=== PATIENT | female | born 1970 | race Caucasian/White ===

== ENCOUNTER 2018-03-07 22:47 | Emergency (ER) | payer MEDICAID ==
[~2018-03-07] VITALS: Ht 162.6 cm; Wt 67.7 kg
[~2018-03-07 22:47] MED LIST: CEPH-571 PO; NAPR-232 PO; ZOF4T PO; [UNRECOGNIZED DRUG - OTHER]; motrin prn
[2018-03-08] MEDS ORDERED: GABA300C PO (00:59)
[2018-03-08] MEDS ORDERED: METH4TAB81 PO (00:59)
[2018-03-08] MEDS ORDERED: HYDR-3965 PO (00:59)
[2018-03-08] MEDS ORDERED: HYDROcodone/acetaminophen 10/325mg tab PO ONE (01:00)
[2018-03-08] MEDS ORDERED: SULF1TAB49 PO (01:26)
[2018-03-08 01:38] VITALS: BP 125/68
== END 2018-03-08 01:40 | disposition home or self-care (01) ==
LOC: ER 22:47
DX: B02.9 Zoster without complications (principal); F12.10 Cannabis abuse, uncomplicated; Z79.899 Other long term (current) drug therapy; Z88.0 Allergy status to penicillin
CPT/HCPCS: 99283

== ENCOUNTER 2018-03-17 06:12 | Inpatient (IN) | payer MEDICAID ==
[~2018-03-17] VITALS: Ht 162.6 cm; Wt 65.0 kg
[~2018-03-17 06:12] MED LIST changes: +GABA300C PO; +HYDR-3965 PO; +METH4TAB81 PO; +SULF1TAB49 PO
[2018-03-17] MEDS ORDERED: normal saline 1000ML IV soln IVB ONE (06:30)
[2018-03-17] MEDS ORDERED: ketorolac trometh. 30mg/ml inj. IV ONE (06:30)
[2018-03-17] MEDS ORDERED: morphine 4 MG/ML inj SYRINge IV PRN ×2 (06:30→09:15)
[2018-03-17 06:57] LABS: BASOPHILS # (AUTO) 0.1 X10'3 (0-0.2); BASOPHILS % (AUTO) 0.4 % (0-1); EOSINOPHILS # (AUTO) 0.2 X10'3 (0-0.9); EOSINOPHILS % (AUTO) 1.2 % (0-6); HEMATOCRIT 42.9 % (35.0-45.0); HEMOGLOBIN 14.7 g/dl (12.0-16.0); LYMPHOCYTES % (AUTO) 7.1 % (21-51); MEAN CORPUSCULAR HEMOGLOBIN 30.9 PG (27.0-31.0); MEAN CORPUSCULAR HGB CONC 34.3 % (33.0-36.5); MEAN PLATELET VOLUME 7.5 FL (7.4-10.4); MONOCYTES # (AUTO) 0.2 X10'3 (0-0.9); MONOCYTES % (AUTO) 1.2 % (2-12); NEUTROPHILS # (AUTO) 12.8 X10'3 (1.8-7.7); NEUTROPHILS % (AUTO) 90.1 % (42-75); PLATELET COUNT 362 X10'3 (140-440); RED BLOOD COUNT 4.77 X10'6 (4.20-5.60); RED CELL DISTRIBUTION WIDTH 13.6 % (11.5-14.5); WHITE BLOOD COUNT 14.2 X10'3 (4.5-11.0)
[2018-03-17 07:00] LABS: CLARITY,URINE CLOUDY (Clear); COLOR,URINE YELLOW (Yellow); GLUCOSE, URINE NEGATIVE (Neg); KETONES,URINE NEGATIVE (Neg); LEUKOCYTE ESTERASE ,URINE LARGE (Neg); NITRITES, URINE POSITIVE (Neg); OCCULT BLOOD,URINE MODERATE (Neg); PROTEIN,URINE 100 mg/dl (Neg); UROBILINOGEN,URINE 0.2 E.U/dL (0.2-1.0)
[2018-03-17 07:03] LABS: URINE HCG NEGATIVE (NEG)
[2018-03-17] MEDS ORDERED: LISI-604 PO (07:03)
[2018-03-17 07:06] LABS: UA COLLECTION TYPE CLN CATCH MIDSTREAM
[2018-03-17 07:09] LABS: RBC,URINE 0-2 /HPF (0-2); WBC,URINE 30-50 /HPF (0-4)
[2018-03-17 07:11] LABS: BACTERIA,URINE 4+ /HPF (Neg); MUCUS STRANDS FEW /LPF (Neg); SQUAMOUS EPITHELIAL CELL,UR MANY /LPF (FEW)
[2018-03-17 07:15] LABS: ALANINE AMINOTRANSFERASE 25 U/L (12-78); ALBUMIN 3.6 G/DL (3.4-5.0); ALBUMIN/GLOBULIN RATIO 0.9 (1.1-1.5); ALKALINE PHOSPHATASE 105 IU/L (46-116); ANION GAP 5 (8-16); ASPARTATE AMINO TRANSFERASE 13 U/L (10-37); BILIRUBIN,TOTAL 0.3 MG/DL (0.1-1.0); BLOOD UREA NITROGEN 16 MG/DL (7-18); BUN/CREATININE RATIO 18.8 (6.6-38.0); CALCIUM 8.7 MG/DL (8.5-10.1); CHLORIDE 103 MMOL/L (99-107); CREATININE 0.85 MG/DL (0.40-0.90); GLUCOSE 103 MG/DL (70-104); LIPASE 130 U/L (73-393); POTASSIUM 3.8 MMOL/L (3.5-5.1); SODIUM 137 MMOL/L (135-145); TOTAL CARBON DIOXIDE 28.9 MMOL/L (24-32); TOTAL PROTEIN 7.5 G/DL (6.4-8.2); eGFR 72 ML/MIN
[2018-03-17] MEDS ORDERED: normal saline 1000ML IV soln IV ONE (07:40)
[2018-03-17] MEDS: CefTRIAXone 2gm/D5W 50ml 50 ML IV ONE ×2 (07:46→08:09)
[2018-03-17] MEDS ORDERED: GABA-532 PO (08:28)
[2018-03-17] MEDS ORDERED: iohexol 300mg/ml 100ml inj. ONE (08:38)
[2018-03-17] MEDS ORDERED: magnesium hydroxide 30ml (MOM) UD suspension PO PRN (09:15)
[2018-03-17] MEDS ORDERED: mag hydrox/Alum hydrox/simeth 30ml oral suspension PO PRN (09:15)
[2018-03-17] MEDS ORDERED: acetaminophen 325mg tablet PO PRN (09:15)
[2018-03-17] MEDS ORDERED: ondansetron/PF 4mg/2ml inj IV PRN (09:15)
[2018-03-17] MEDS ORDERED: METH4TAB17 PO (09:17)
[2018-03-17] MEDS: HYDROcodone/acetaminophen 5mg/325mg tablet PO PRN ×3 (09:30→21:19)
[2018-03-17] MEDS: potassium cl 20mEq in 1/2 NS 1,000 ML IV SCH ×2 (09:39→19:26)
[2018-03-17 10:59] VITALS: BP 137/86
[2018-03-17 19:30] VITALS: BP_SYST 106; BP_SYST 91; BP_DIAS 55; BP_DIAS 67
[2018-03-17] MEDS ORDERED: VALA10002 PO (22:28)
[2018-03-17 23:30] VITALS: BP 106/67
[2018-03-18] MEDS: potassium cl 20mEq in 1/2 NS 1,000 ML IV SCH ×3 (04:39→23:23)
[2018-03-18] MEDS: HYDROcodone/acetaminophen 5mg/325mg tablet PO PRN ×4 (04:41→23:23)
[2018-03-18 07:21] VITALS: BP 95/52
[2018-03-18] MEDS: lisinopril 2.5mg tablet PO SCH (08:30)
[2018-03-18] MEDS: lactobacillus rhamnosus 10,000 MMU CELLS/CAPSULE PO SCH ×2 (08:30→19:24)
[2018-03-18] MEDS: CefTRIAXone 2gm/D5W 50ml 50 ML IV SCH (08:31)
[2018-03-18 11:13] VITALS: BP 106/64
[2018-03-18] MEDS: gabapentin 300mg capsule PO SCH ×2 (17:53→23:23)
[2018-03-18] MEDS: valacyclovir 500mg tablet PO SCH (19:24)
[2018-03-18 19:30] VITALS: BP 112/71
[2018-03-18 23:30] VITALS: BP 110/72
[2018-03-19] MEDS: HYDROcodone/acetaminophen 5mg/325mg tablet PO PRN ×2 (05:06→17:34)
[2018-03-19 05:21] LABS: BASOPHILS % (AUTO) 0.3 % (0-1); EOSINOPHILS # (AUTO) 0.2 X10'3 (0-0.9); EOSINOPHILS % (AUTO) 1.3 % (0-6); HEMOGLOBIN 12.2 g/dl (12.0-16.0); LYMPHOCYTES # (AUTO) 1.4 X10'3 (1.1-4.8); LYMPHOCYTES % (AUTO) 9.5 % (21-51); MEAN CORPUSCULAR HEMOGLOBIN 30.7 PG (27.0-31.0); MEAN CORPUSCULAR VOLUME 90.3 FL (78-98); MEAN PLATELET VOLUME 7.9 FL (7.4-10.4); MONOCYTES % (AUTO) 7.2 % (2-12); NEUTROPHILS # (AUTO) 11.6 X10'3 (1.8-7.7); NEUTROPHILS % (AUTO) 81.7 % (42-75); PLATELET COUNT 280 X10'3 (140-440); RED BLOOD COUNT 3.98 X10'6 (4.20-5.60); RED CELL DISTRIBUTION WIDTH 13.8 % (11.5-14.5); WHITE BLOOD COUNT 14.2 X10'3 (4.5-11.0)
[2018-03-19 05:40] LABS: ALANINE AMINOTRANSFERASE 17 U/L (12-78); ALBUMIN 2.3 G/DL (3.4-5.0); ALBUMIN/GLOBULIN RATIO 0.6 (1.1-1.5); ALKALINE PHOSPHATASE 116 IU/L (46-116); ANION GAP 6 (8-16); ASPARTATE AMINO TRANSFERASE 12 U/L (10-37); BILIRUBIN,TOTAL 0.2 MG/DL (0.1-1.0); BLOOD UREA NITROGEN 5 MG/DL (7-18); BUN/CREATININE RATIO 7.2 (6.6-38.0); CALCIUM 8.2 MG/DL (8.5-10.1); CHLORIDE 105 MMOL/L (99-107); CREATININE 0.69 MG/DL (0.40-0.90); GLUCOSE 100 MG/DL (70-104); POTASSIUM 4.8 MMOL/L (3.5-5.1); SODIUM 139 MMOL/L (135-145); TOTAL CARBON DIOXIDE 28.5 MMOL/L (24-32); TOTAL PROTEIN 5.9 G/DL (6.4-8.2); eGFR > 90 ML/MIN
[2018-03-19 05:47] LABS: CLARITY,URINE CLOUDY (Clear); COLOR,URINE YELLOW (Yellow); GLUCOSE, URINE NEGATIVE (Neg); KETONES,URINE NEGATIVE (Neg); LEUKOCYTE ESTERASE ,URINE LARGE (Neg); NITRITES, URINE NEGATIVE (Neg); OCCULT BLOOD,URINE MODERATE (Neg); PROTEIN,URINE NEGATIVE (Neg); UROBILINOGEN,URINE 0.2 E.U/dL (0.2-1.0)
[2018-03-19 05:53] LABS: UA COLLECTION TYPE VOIDED
[2018-03-19 05:58] LABS: BACTERIA,URINE 1+ /HPF (Neg); RBC,URINE 0-2 /HPF (0-2); SQUAMOUS EPITHELIAL CELL,UR MODERATE /LPF (FEW); TRICHOMONAS,URINE MOD /HPF (NEGATIVE)
[2018-03-19 06:51] VITALS: BP 100/67
[2018-03-19] MEDS: lisinopril 2.5mg tablet PO SCH (07:04)
[2018-03-19] MEDS: CefTRIAXone 2gm/D5W 50ml 50 ML IV SCH (07:04)
[2018-03-19] MEDS: lactobacillus rhamnosus 10,000 MMU CELLS/CAPSULE PO SCH ×2 (07:04→19:17)
[2018-03-19] MEDS: gabapentin 300mg capsule PO SCH ×3 (07:04→23:57)
[2018-03-19] MEDS: valacyclovir 500mg tablet PO SCH ×2 (07:04→19:17)
[2018-03-19] MEDS ORDERED: lisinopril 5mg tablet PO SCH (08:00)
[2018-03-19] MEDS: levoFLOXACIN-Levaquin 500mg/D5 100 ML IV SCH (10:05)
[2018-03-19] MEDS: potassium cl 20mEq in 1/2 NS 1,000 ML IV SCH ×2 (10:07→20:31)
[2018-03-19 20:00] VITALS: BP_SYST 119; BP_SYST 92; BP_DIAS 55; BP_DIAS 78
[2018-03-19 23:30] VITALS: BP 90/55
[2018-03-20] MEDS: HYDROcodone/acetaminophen 5mg/325mg tablet PO PRN ×2 (00:11→07:06)
[2018-03-20] MEDS: valacyclovir 500mg tablet PO SCH (07:05)
[2018-03-20] MEDS: gabapentin 300mg capsule PO SCH (07:05)
[2018-03-20] MEDS: lactobacillus rhamnosus 10,000 MMU CELLS/CAPSULE PO SCH (07:05)
[2018-03-20] MEDS: lisinopril 2.5mg tablet PO SCH (07:05)
[2018-03-20] MEDS: CefTRIAXone 2gm/D5W 50ml 50 ML IV SCH (07:05)
[2018-03-20 07:11] VITALS: BP 102/64
[2018-03-20] MEDS: potassium cl 20mEq in 1/2 NS 1,000 ML IV SCH (07:13)
[2018-03-20] MEDS: levoFLOXACIN-Levaquin 500mg/D5 100 ML IV SCH (08:24)
[2018-03-20 09:03] LABS: BASOPHILS # (AUTO) 0.1 X10'3 (0-0.2); BASOPHILS % (AUTO) 0.9 % (0-1); EOSINOPHILS # (AUTO) 0.1 X10'3 (0-0.9); EOSINOPHILS % (AUTO) 0.7 % (0-6); HEMATOCRIT 33.4 % (35.0-45.0); HEMOGLOBIN 11.3 g/dl (12.0-16.0); LYMPHOCYTES # (AUTO) 0.9 X10'3 (1.1-4.8); LYMPHOCYTES % (AUTO) 7.4 % (21-51); MEAN CORPUSCULAR HEMOGLOBIN 30.5 PG (27.0-31.0); MEAN CORPUSCULAR VOLUME 89.7 FL (78-98); MEAN PLATELET VOLUME 7.8 FL (7.4-10.4); MONOCYTES # (AUTO) 0.8 X10'3 (0-0.9); MONOCYTES % (AUTO) 6.1 % (2-12); NEUTROPHILS # (AUTO) 10.5 X10'3 (1.8-7.7); NEUTROPHILS % (AUTO) 84.9 % (42-75); PLATELET COUNT 311 X10'3 (140-440); RED BLOOD COUNT 3.72 X10'6 (4.20-5.60); WHITE BLOOD COUNT 12.3 X10'3 (4.5-11.0)
[2018-03-20 09:17] LABS: ALBUMIN 2.1 G/DL (3.4-5.0); ANION GAP 8 (8-16); BLOOD UREA NITROGEN 5 MG/DL (7-18); BUN/CREATININE RATIO 7.2 (6.6-38.0); CALCIUM 7.9 MG/DL (8.5-10.1); CHLORIDE 103 MMOL/L (99-107); CREATININE 0.69 MG/DL (0.40-0.90); GLUCOSE 166 MG/DL (70-104); POTASSIUM 3.8 MMOL/L (3.5-5.1); SODIUM 137 MMOL/L (135-145); TOTAL CARBON DIOXIDE 26.3 MMOL/L (24-32); eGFR > 90 ML/MIN
[2018-03-20] MEDS ORDERED: LEVO500T2 PO (09:24)
== END 2018-03-20 11:03 | disposition home or self-care (01) | DRG 463 ==
LOC: ER 06:13 → ED HOLD 09:13 → EDBEDREQ 10:00 → SUR 3N 10:31
PROVIDERS: ADMIT Internal Medicine; ATTEND Family Medicine
DX: N10 Acute pyelonephritis (principal); I10 Essential (primary) hypertension; N15.1 Renal and perinephric abscess; F32.9 Major depressive disorder, single episode, unspecified; F17.210 Nicotine dependence, cigarettes, uncomplicated; M19.90 Unspecified osteoarthritis, unspecified site; F12.90 Cannabis use, unspecified, uncomplicated; N20.0 Calculus of kidney; Z79.899 Other long term (current) drug therapy; Z87.440 Personal history of urinary (tract) infections; Z87.442 Personal history of urinary calculi; Z88.0 Allergy status to penicillin; Z88.7 Allergy status to serum and vaccine
CPT/HCPCS: 36415; 74160; 74176; 80048; 80053; 81001; 81025; 83605; 83690; 84145; 85025; 87040; 87070; 87088; 96361; 96365; 96375; 99285; J0696; J1885; J1956; J2270; J7030; Q9967

== ENCOUNTER 2018-04-28 14:44 | Emergency (ER) | payer MEDICAID ==
[~2018-04-28] VITALS: Ht 160 cm; Wt 65.6 kg
[~2018-04-28 14:44] MED LIST changes: -CEPH-571 PO; +GABA-532 PO; -GABA300C PO; -HYDR-3965 PO; +LISI-604 PO; -METH4TAB81 PO; -NAPR-232 PO; -SULF1TAB49 PO; +VALA10002 PO; -ZOF4T PO; -[UNRECOGNIZED DRUG - OTHER]; -motrin prn
[2018-04-28 14:51] VITALS: BP 136/91
== END 2018-04-28 15:45 | disposition home or self-care (01) ==
LOC: ER 14:45
DX: S93.401A Sprain of unspecified ligament of right ankle, initial encounter (principal); S83.91XA Sprain of unspecified site of right knee, initial encounter; M19.90 Unspecified osteoarthritis, unspecified site; F12.90 Cannabis use, unspecified, uncomplicated; Z87.442 Personal history of urinary calculi; Z98.890 Other specified postprocedural states; Z88.0 Allergy status to penicillin; Z88.7 Allergy status to serum and vaccine; Z79.899 Other long term (current) drug therapy; W18.39XA Other fall on same level, initial encounter; Y93.89 Activity, other specified; Y92.89 Other specified places as the place of occurrence of the external cause; Y99.8 Other external cause status
CPT/HCPCS: 73610; 99284

== ENCOUNTER 2018-07-15 05:14 | Day surgery (SDC) | payer MEDICAID ==
[~2018-07-15] VITALS: Ht 162.6 cm; Wt 65.3 kg
[2018-07-15] VITALS (23 sets, daily range): BP systolic 115–157; BP diastolic 76–98
[~2018-07-15 05:14] MED LIST changes: -GABA-532 PO; +NITR100C11 PO; -VALA10002 PO
[2018-07-15] MEDS ORDERED: famotidine 20mg tablet PO ONE (05:30)
[2018-07-15] MEDS ORDERED: albuterol 2.5 MG/3 ML nebule NEB ONE (05:30)
[2018-07-15] MEDS ORDERED: VANCOMYCIN INJ 1000 MG in NORMAL SALINE 250ml IV.SOLN IV ONE (05:30)
[2018-07-15] MEDS ORDERED: LIDOcaine 1% (10mg/ml) 2ml vial ONE (06:02)
[2018-07-15] MEDS: ringers solution, lacted 1,000 ML IV SCH ×3 (06:04→11:03)
[2018-07-15] MEDS ORDERED: methylene blue (5mg/ml) 50mg/10ml ampul IV ONE (06:35)
[2018-07-15] MEDS ORDERED: iohexol 300 MG/1 ML 50ml polymer ONE ×2 (06:35→09:12)
[2018-07-15] MEDS ORDERED: sevoflurane 250ml liquid IH ONE (07:22)
[2018-07-15] MEDS ORDERED: glycopyrrolate 0.2mg/ml inj ONE (07:22)
[2018-07-15] MEDS ORDERED: neostigmine methylsulfate 1 MG/ML 10ml vial ONE (07:22)
[2018-07-15] MEDS ORDERED: fentaNYL /PF 50mcg/ml 5ml ampule ONE (07:25)
[2018-07-15] MEDS ORDERED: midazolam 2 mg/2 ml injection ONE (07:25)
[2018-07-15] MEDS ORDERED: propofol inj 20 ML IV ONE (07:26)
[2018-07-15] MEDS ORDERED: rocuronium 10mg/ml inj IV ONE ×2 (07:28→08:55)
[2018-07-15] MEDS ORDERED: ringers solution, lacted 1,000 ML IV SCH (07:32)
[2018-07-15] MEDS ORDERED: morphine 4 MG/ML inj SYRINge IV PRN ×2 (07:35)
[2018-07-15] MEDS ORDERED: ondansetron/PF 4mg/2ml inj IV PRN ×2 (07:35→10:05)
[2018-07-15] MEDS ORDERED: proCHLORperazine 10 MG/2 ml inj IV PRN (07:35)
[2018-07-15] MEDS ORDERED: meperidine/PF 25mg/ml syringe IV PRN ×3 (07:35)
[2018-07-15] MEDS ORDERED: ondansetron/PF 4mg/2ml inj ONE (08:11)
[2018-07-15] MEDS ORDERED: dexamethasone sod phosphate 4mg/ml inj. ONE (08:11)
[2018-07-15] MEDS ORDERED: HYDROcodone/acetaminophen 10/325mg tab PO PRN (10:05)
[2018-07-15] MEDS ORDERED: acetaminophen 325mg tablet PO PRN (10:05)
[2018-07-15] MEDS ORDERED: HYDROmorphone 2mg/ml vial IV PRN (10:20)
[2018-07-15] MEDS ORDERED: HYDROmorphone 1 mg/ml syringe IV PRN (10:25)
[2018-07-15 11:00] LABS: BASOPHILS % (AUTO) 0.4 % (0-1); EOSINOPHILS % (AUTO) 0.5 % (0-6); HEMATOCRIT 38.1 % (35.0-45.0); HEMOGLOBIN 12.8 g/dl (12.0-16.0); LYMPHOCYTES # (AUTO) 0.7 X10'3 (1.1-4.8); LYMPHOCYTES % (AUTO) 9.2 % (21-51); MEAN CORPUSCULAR HGB CONC 33.6 % (33.0-36.5); MEAN CORPUSCULAR VOLUME 89.3 FL (78-98); MEAN PLATELET VOLUME 8.2 FL (7.4-10.4); MONOCYTES % (AUTO) 0.6 % (2-12); NEUTROPHILS # (AUTO) 6.7 X10'3 (1.8-7.7); NEUTROPHILS % (AUTO) 89.3 % (42-75); PLATELET COUNT 251 X10'3 (140-440); RED BLOOD COUNT 4.27 X10'6 (4.20-5.60); RED CELL DISTRIBUTION WIDTH 13.2 % (11.5-14.5)
[2018-07-15 11:35] LABS: WHITE BLOOD COUNT 7.5 X10'3 (4.5-11.0)
[2018-07-15] MEDS: HYDROcodone/acetaminophen 10/325mg tab PO PRN (19:20)
[2018-07-15] MEDS: nitrofuran/nitrofuran macrocrysal 100 MG capsule PO SCH (20:41)
[2018-07-16] VITALS: BP 129/81
[2018-07-16] MEDS: HYDROcodone/acetaminophen 10/325mg tab PO PRN (03:14)
[2018-07-16 05:02] LABS: ANION GAP 8 (8-16); BLOOD UREA NITROGEN 10 MG/DL (7-18); CHLORIDE 103 MMOL/L (99-107); CREATININE 0.78 MG/DL (0.40-0.90); GLUCOSE 113 MG/DL (70-104); POTASSIUM 3.9 MMOL/L (3.5-5.1); SODIUM 139 MMOL/L (135-145); TOTAL CARBON DIOXIDE 28.1 MMOL/L (24-32)
[2018-07-16 05:03] LABS: ALBUMIN 2.7 G/DL (3.4-5.0); BUN/CREATININE RATIO 12.8 (6.6-38.0); CALCIUM 8.1 MG/DL (8.5-10.1); eGFR 79 ML/MIN
[2018-07-16 05:11] LABS: BASOPHILS % (AUTO) 0.1 % (0-1); EOSINOPHILS # (AUTO) 0.1 X10'3 (0-0.9); EOSINOPHILS % (AUTO) 0.8 % (0-6); HEMATOCRIT 34.6 % (35.0-45.0); HEMOGLOBIN 11.4 g/dl (12.0-16.0); LYMPHOCYTES # (AUTO) 0.7 X10'3 (1.1-4.8); MEAN CORPUSCULAR HEMOGLOBIN 29.9 PG (27.0-31.0); MEAN CORPUSCULAR HGB CONC 33.1 % (33.0-36.5); MEAN CORPUSCULAR VOLUME 90.3 FL (78-98); MEAN PLATELET VOLUME 8.7 FL (7.4-10.4); MONOCYTES # (AUTO) 0.7 X10'3 (0-0.9); MONOCYTES % (AUTO) 5.4 % (2-12); NEUTROPHILS # (AUTO) 10.7 X10'3 (1.8-7.7); NEUTROPHILS % (AUTO) 87.7 % (42-75); PLATELET COUNT 268 X10'3 (140-440); RED BLOOD COUNT 3.83 X10'6 (4.20-5.60); RED CELL DISTRIBUTION WIDTH 13.6 % (11.5-14.5); WHITE BLOOD COUNT 12.3 X10'3 (4.5-11.0)
[2018-07-16 07:08] VITALS: BP 111/62
[2018-07-16] MEDS ORDERED: lisinopril 5mg tablet PO SCH (08:00)
[2018-07-16] MEDS: nitrofuran/nitrofuran macrocrysal 100 MG capsule PO SCH (08:07)
[2018-07-16] MEDS ORDERED: HYDR-3965 PO (08:08)
[2018-07-16] MEDS ORDERED: DOCU-28 PO (08:08)
[2018-07-16 11:00] VITALS: BP 117/72
[2018-07-17] MEDS ORDERED: docusate sod 250mg capsule PO SCH (08:00)
== END 2018-07-16 11:48 | disposition home or self-care (01) ==
LOC: PAS 05:14 → SUR 3N 10:06 → PAS 07-16 11:48
PROVIDERS: ATTEND Urology
DX: N20.0 Calculus of kidney (principal); I10 Essential (primary) hypertension; M19.90 Unspecified osteoarthritis, unspecified site; F17.210 Nicotine dependence, cigarettes, uncomplicated; Z87.440 Personal history of urinary (tract) infections; Z86.718 Personal history of other venous thrombosis and embolism; Z79.01 Long term (current) use of anticoagulants; Z79.899 Other long term (current) drug therapy; Z88.0 Allergy status to penicillin; Z98.890 Other specified postprocedural states; Z80.0 Family history of malignant neoplasm of digestive organs; Z83.3 Family history of diabetes mellitus; Z80.49 Family history of malignant neoplasm of other genital organs; Z80.52 Family history of malignant neoplasm of bladder; Z84.2 Family history of other diseases of the genitourinary system
CPT/HCPCS: 36415; 52332; 76001; 80048; 85025; 86885; 86900; 86901; 86922; 87070; A4344; A4355; A4357; A6449; C1729; C1758; C1769; C1894; C2617; C2628; J1100; J2175; J2250; J2405; J2704; J2710; J3010; J3370; J3490; J7030; J7120; Q9967; A4402; A7000; J1170; J7042

== ENCOUNTER 2018-07-27 18:56 | Inpatient (IN) | payer MEDICAID ==
[~2018-07-27] VITALS: Ht 162.6 cm; Wt 68.1 kg
[~2018-07-27 18:56] MED LIST changes: +DOCU-28 PO; +HYDR-3965 PO
[2018-07-27] MEDS ORDERED: normal saline 1000ML IV soln IVB ONE (19:25)
[2018-07-27 19:29] LABS: BASOPHILS # (AUTO) 0.1 X10'3 (0-0.2); BASOPHILS % (AUTO) 0.3 % (0-1); EOSINOPHILS # (AUTO) 0.2 X10'3 (0-0.9); EOSINOPHILS % (AUTO) 1.2 % (0-6); HEMATOCRIT 38.6 % (35.0-45.0); HEMOGLOBIN 12.8 g/dl (12.0-16.0); LYMPHOCYTES # (AUTO) 1.4 X10'3 (1.1-4.8); LYMPHOCYTES % (AUTO) 8.1 % (21-51); MEAN CORPUSCULAR HEMOGLOBIN 29.6 PG (27.0-31.0); MEAN CORPUSCULAR HGB CONC 33.2 % (33.0-36.5); MEAN CORPUSCULAR VOLUME 89.3 FL (78-98); MEAN PLATELET VOLUME 7.6 FL (7.4-10.4); MONOCYTES # (AUTO) 0.8 X10'3 (0-0.9); MONOCYTES % (AUTO) 4.8 % (2-12); NEUTROPHILS % (AUTO) 85.6 % (42-75); PLATELET COUNT 490 X10'3 (140-440); RED BLOOD COUNT 4.32 X10'6 (4.20-5.60); RED CELL DISTRIBUTION WIDTH 13.4 % (11.5-14.5); WHITE BLOOD COUNT 17.5 X10'3 (4.5-11.0)
[2018-07-27 19:29] LABS: CLARITY,URINE CLOUDY (Clear); COLOR,URINE YELLOW (Yellow); GLUCOSE, URINE NEGATIVE (Neg); KETONES,URINE NEGATIVE (Neg); LEUKOCYTE ESTERASE ,URINE MODERATE (Neg); NITRITES, URINE NEGATIVE (Neg); OCCULT BLOOD,URINE LARGE (Neg); PH,URINE 6.5 (4.8-8.0); PROTEIN,URINE 100 mg/dl (Neg); UROBILINOGEN,URINE 0.2 E.U/dL (0.2-1.0)
[2018-07-27 19:40] LABS: UA COLLECTION TYPE CLN CATCH MIDSTREAM
[2018-07-27 19:41] LABS: BACTERIA,URINE FEW /HPF (Neg); SQUAMOUS EPITHELIAL CELL,UR FEW /LPF (FEW); WBC CLUMPS,URINE FEW /HPF (NEGATIVE); WBC,URINE 30-50 /HPF (0-4)
[2018-07-27 19:51] LABS: PARTIAL THROMBOPLASTIN TIME 27 SECONDS (22-32)
[2018-07-27 19:53] LABS: ALANINE AMINOTRANSFERASE 16 U/L (12-78); ALBUMIN 3.3 G/DL (3.4-5.0); ALBUMIN/GLOBULIN RATIO 0.8 (1.1-1.5); ALKALINE PHOSPHATASE 111 IU/L (46-116); ANION GAP 6 (8-16); ASPARTATE AMINO TRANSFERASE 9 U/L (10-37); BILIRUBIN,TOTAL 0.4 MG/DL (0.1-1.0); BLOOD UREA NITROGEN 9 MG/DL (7-18); BUN/CREATININE RATIO 10.6 (6.6-38.0); CALCIUM 8.8 MG/DL (8.5-10.1); CHLORIDE 100 MMOL/L (99-107); CREATININE 0.85 MG/DL (0.40-0.90); GLUCOSE 92 MG/DL (70-104); SODIUM 136 MMOL/L (135-145); TOTAL CARBON DIOXIDE 30.3 MMOL/L (24-32); TOTAL PROTEIN 7.6 G/DL (6.4-8.2); eGFR 72 ML/MIN
[2018-07-27] MEDS ORDERED: temazepam 15mg capsule PO PRN (21:00)
[2018-07-27] MEDS ORDERED: normal saline 1000ml 1,000 ML IV ONE (22:00)
[2018-07-27] MEDS ORDERED: CefTRIAXone 2gm/D5W 50ml 50 ML IV ONE ×2 (22:00→22:25)
[2018-07-27] MEDS ORDERED: HYDROcodone/acetaminophen 5mg/325mg tablet PO PRN (22:55)
[2018-07-27] MEDS ORDERED: diphenhydrAMINE 25mg capsule PO PRN (22:55)
[2018-07-27] MEDS ORDERED: metoclopramide 5 mg/ml inj IV PRN (22:55)
[2018-07-27] MEDS ORDERED: magnesium hydroxide 30ml (MOM) UD suspension PO PRN (22:55)
[2018-07-27] MEDS ORDERED: acetaminophen 325mg tablet PO PRN ×2 (22:55)
[2018-07-27] MEDS ORDERED: bisacodyl 10mg suppository rectal RC PRN (22:55)
[2018-07-27] MEDS ORDERED: mag hydrox/Alum hydrox/simeth 30ml oral suspension PO PRN (22:55)
[2018-07-27] MEDS ORDERED: acetaminophen 650mg rectal suppository RC PRN (22:55)
[2018-07-27] MEDS ORDERED: HYDROmorphone 1 mg/ml syringe IV PRN ×2 (22:55)
[2018-07-27] MEDS ORDERED: morphine 2 MG/ML inj. syringe IV PRN ×2 (22:55)
[2018-07-27] MEDS ORDERED: diphenhydrAMINE 50 mg/ml inj IV PRN (22:55)
[2018-07-27] MEDS ORDERED: ondansetron/PF 4mg/2ml inj IV PRN (22:55)
[2018-07-27] MEDS ORDERED: proCHLORperazine 10 MG/2 ml inj IV PRN (23:00)
[2018-07-27] MEDS: pantoprazole 40 MG vial IV SCH (23:10)
[2018-07-27] MEDS: normal saline 1000ml 1,000 ML IV SCH (23:13)
[2018-07-27 23:31] LABS: LIPASE 192 U/L (73-393); MAGNESIUM 1.9 MG/DL (1.5-2.4); PHOSPHORUS 2.9 MG/DL (2.3-4.5)
[2018-07-28] VITALS: BP 128/79
[2018-07-28 05:11] LABS: BASOPHILS % (AUTO) 0.3 % (0-1); EOSINOPHILS # (AUTO) 0.3 X10'3 (0-0.9); HEMATOCRIT 32.1 % (35.0-45.0); HEMOGLOBIN 10.8 g/dl (12.0-16.0); LYMPHOCYTES # (AUTO) 1.3 X10'3 (1.1-4.8); LYMPHOCYTES % (AUTO) 9.1 % (21-51); MEAN CORPUSCULAR HEMOGLOBIN 29.8 PG (27.0-31.0); MEAN CORPUSCULAR HGB CONC 33.5 % (33.0-36.5); MEAN PLATELET VOLUME 8.1 FL (7.4-10.4); MONOCYTES # (AUTO) 0.7 X10'3 (0-0.9); MONOCYTES % (AUTO) 5.1 % (2-12); NEUTROPHILS # (AUTO) 11.6 X10'3 (1.8-7.7); NEUTROPHILS % (AUTO) 83.5 % (42-75); PLATELET COUNT 342 X10'3 (140-440); RED BLOOD COUNT 3.61 X10'6 (4.20-5.60); RED CELL DISTRIBUTION WIDTH 13.4 % (11.5-14.5); WHITE BLOOD COUNT 13.9 X10'3 (4.5-11.0)
[2018-07-28 05:25] LABS: ALANINE AMINOTRANSFERASE 13 U/L (12-78); ALBUMIN 2.4 G/DL (3.4-5.0); ALBUMIN/GLOBULIN RATIO 0.7 (1.1-1.5); ALKALINE PHOSPHATASE 95 IU/L (46-116); ANION GAP 8 (8-16); ASPARTATE AMINO TRANSFERASE 9 U/L (10-37); BILIRUBIN,TOTAL 0.3 MG/DL (0.1-1.0); BLOOD UREA NITROGEN 5 MG/DL (7-18); BUN/CREATININE RATIO 7.7 (6.6-38.0); CALCIUM 7.6 MG/DL (8.5-10.1); CHLORIDE 104 MMOL/L (99-107); CREATININE 0.65 MG/DL (0.40-0.90); GLUCOSE 97 MG/DL (70-104); POTASSIUM 3.5 MMOL/L (3.5-5.1); SODIUM 137 MMOL/L (135-145); TOTAL CARBON DIOXIDE 25.4 MMOL/L (24-32); eGFR > 90 ML/MIN
[2018-07-28] MEDS: pantoprazole 40 MG vial IV SCH (08:48)
[2018-07-28] MEDS: CefTRIAXone/D5W-Rocephin 1gm 50 ML IV SCH ×2 (08:49→19:50)
[2018-07-28] MEDS: docusate sod 100mg capsule PO SCH ×2 (08:53→19:50)
[2018-07-28] MEDS: nicotine 21mg patch - 24 hr TD SCH (08:53)
[2018-07-28] MEDS: normal saline 1000ml 1,000 ML IV SCH ×2 (08:56→19:13)
[2018-07-28 11:42] VITALS: BP 104/64
[2018-07-28 18:30] VITALS: BP 113/75
[2018-07-28] MEDS: lactobacillus rhamnosus 10,000 MMU CELLS/CAPSULE PO SCH (19:50)
[2018-07-28] MEDS: HYDROcodone/acetaminophen 10/325mg tab PO PRN (22:16)
[2018-07-29] VITALS: BP 100/69
[2018-07-29] MEDS: HYDROcodone/acetaminophen 10/325mg tab PO PRN (03:19)
[2018-07-29] MEDS: normal saline 1000ml 1,000 ML IV SCH ×2 (05:10→14:51)
[2018-07-29 07:27] LABS: BASOPHILS % (AUTO) 0.6 % (0-1); EOSINOPHILS # (AUTO) 0.2 X10'3 (0-0.9); EOSINOPHILS % (AUTO) 3.3 % (0-6); HEMATOCRIT 34.4 % (35.0-45.0); HEMOGLOBIN 11.4 g/dl (12.0-16.0); LYMPHOCYTES # (AUTO) 1.1 X10'3 (1.1-4.8); LYMPHOCYTES % (AUTO) 16.5 % (21-51); MEAN CORPUSCULAR HEMOGLOBIN 29.8 PG (27.0-31.0); MEAN CORPUSCULAR HGB CONC 33.2 % (33.0-36.5); MEAN CORPUSCULAR VOLUME 89.7 FL (78-98); MEAN PLATELET VOLUME 7.7 FL (7.4-10.4); MONOCYTES # (AUTO) 0.5 X10'3 (0-0.9); MONOCYTES % (AUTO) 8.1 % (2-12); NEUTROPHILS # (AUTO) 4.7 X10'3 (1.8-7.7); NEUTROPHILS % (AUTO) 71.5 % (42-75); PLATELET COUNT 313 X10'3 (140-440); RED BLOOD COUNT 3.83 X10'6 (4.20-5.60); RED CELL DISTRIBUTION WIDTH 13.5 % (11.5-14.5); WHITE BLOOD COUNT 6.6 X10'3 (4.5-11.0)
[2018-07-29 07:38] LABS: ALANINE AMINOTRANSFERASE 9 U/L (12-78); ALBUMIN 2.3 G/DL (3.4-5.0); ALBUMIN/GLOBULIN RATIO 0.6 (1.1-1.5); ALKALINE PHOSPHATASE 90 IU/L (46-116); ANION GAP 3 (8-16); ASPARTATE AMINO TRANSFERASE 11 U/L (10-37); BILIRUBIN,TOTAL 0.2 MG/DL (0.1-1.0); BLOOD UREA NITROGEN 8 MG/DL (7-18); BUN/CREATININE RATIO 12.1 (6.6-38.0); CALCIUM 8.1 MG/DL (8.5-10.1); CHLORIDE 106 MMOL/L (99-107); CREATININE 0.66 MG/DL (0.40-0.90); GLUCOSE 90 MG/DL (70-104); POTASSIUM 3.7 MMOL/L (3.5-5.1); SODIUM 137 MMOL/L (135-145); TOTAL CARBON DIOXIDE 27.6 MMOL/L (24-32); eGFR > 90 ML/MIN
[2018-07-29 07:41] VITALS: BP 90/55
[2018-07-29] MEDS: pantoprazole 40 MG vial IV SCH (07:57)
[2018-07-29] MEDS: docusate sod 100mg capsule PO SCH (07:58)
[2018-07-29] MEDS: lactobacillus rhamnosus 10,000 MMU CELLS/CAPSULE PO SCH (07:58)
[2018-07-29] MEDS: CefTRIAXone/D5W-Rocephin 1gm 50 ML IV SCH (07:58)
[2018-07-29] MEDS: nicotine 21mg patch - 24 hr TD SCH (07:58)
[2018-07-29 11:00] VITALS: BP 110/66
[2018-07-29] MEDS ORDERED: CEPH250T PO (15:18)
[2018-07-29] MEDS ORDERED: NICO-731 TD (15:47)
[2018-07-30] MEDS ORDERED: pantoprazole 40mg Tablet.DR PO SCH (07:30)
== END 2018-07-29 16:35 | disposition home or self-care (01) | DRG 720 ==
LOC: ER 18:57 → ED HOLD 22:51 → SUR 3N 23:53
PROVIDERS: ADMIT Family Medicine; ATTEND Family Medicine
DX: A41.9 Sepsis, unspecified organism (principal); N12 Tubulo-interstitial nephritis, not specified as acute or chronic; E86.0 Dehydration; F12.90 Cannabis use, unspecified, uncomplicated; F17.210 Nicotine dependence, cigarettes, uncomplicated; B96.20 Unspecified Escherichia coli [E. coli] as the cause of diseases classified elsewhere; N20.0 Calculus of kidney; I10 Essential (primary) hypertension; F32.9 Major depressive disorder, single episode, unspecified; M19.90 Unspecified osteoarthritis, unspecified site; Z88.0 Allergy status to penicillin; Z88.7 Allergy status to serum and vaccine; Z79.899 Other long term (current) drug therapy; Z71.6 Tobacco abuse counseling
CPT/HCPCS: 36415; 71045; 74176; 80053; 81001; 83605; 83690; 83735; 83880; 84100; 84145; 85025; 85610; 85730; 87040; 87070; 87077; 87088; 87186; 96361; 96365; 99285; C9113; J0696; J7030

== ENCOUNTER 2019-06-07 06:40 | Emergency (ER) | payer MEDICAID ==
[~2019-06-07] VITALS: Ht 162.6 cm; Wt 68.2 kg
[~2019-06-07 06:40] MED LIST changes: +CEPH250T PO; -HYDR-3965 PO; +NICO-731 TD; -NITR100C11 PO
[2019-06-07] MEDS ORDERED: pantoprazole 40 MG vial IV ONE (07:10)
[2019-06-07] MEDS ORDERED: normal saline 1000ML IV soln IVB ONE (07:10)
[2019-06-07] MEDS ORDERED: ondansetron/PF 4mg/2ml inj IV ONE (07:10)
[2019-06-07] MEDS ORDERED: morphine 4 MG/ML inj SYRINge IV ONE (07:10)
[2019-06-07 07:21] LABS: URINE HCG NEGATIVE (NEG)
[2019-06-07 07:26] LABS: CLARITY,URINE CLOUDY (Clear); COLOR,URINE YELLOW (Yellow); GLUCOSE, URINE NEGATIVE (Neg); KETONES,URINE NEGATIVE (Neg); LEUKOCYTE ESTERASE ,URINE MODERATE (Neg); NITRITES, URINE POSITIVE (Neg); OCCULT BLOOD,URINE SMALL (Neg); PH,URINE 6.5 (4.8-8.0); PROTEIN,URINE 30 mg/dl (Neg); UROBILINOGEN,URINE 0.2 E.U/dL (0.2-1.0)
[2019-06-07 07:27] LABS: UA COLLECTION TYPE CLN CATCH MIDSTREAM
[2019-06-07 07:32] LABS: BACTERIA,URINE 4+ /HPF (Neg); MUCUS STRANDS NONE SEEN /LPF (Neg); SQUAMOUS EPITHELIAL CELL,UR MODERATE /LPF (FEW); WBC CLUMPS,URINE FEW /HPF (NEGATIVE); WBC,URINE 50-100 /HPF (0-4)
--- NOTE | 2019-06-07 08:12 | NUR ---
PT DENIES NAUSEA AT THIS TIME.
[2019-06-07 08:33] LABS: BASOPHILS % (AUTO) 0.3 % (0-1); EOSINOPHILS % (AUTO) 0.1 % (0-6); HEMATOCRIT 43.4 % (35.0-45.0); HEMOGLOBIN 14.7 g/dl (12.0-16.0); LYMPHOCYTES # (AUTO) 0.7 X10'3 (1.1-4.8); LYMPHOCYTES % (AUTO) 13.7 % (21-51); MEAN CORPUSCULAR HEMOGLOBIN 30.7 PG (27.0-31.0); MEAN CORPUSCULAR HGB CONC 33.9 g/dL (33.0-36.5); MEAN CORPUSCULAR VOLUME 90.4 FL (78-98); MEAN PLATELET VOLUME 8.2 FL (7.4-10.4); MONOCYTES # (AUTO) 0.6 X10'3 (0-0.9); MONOCYTES % (AUTO) 12.3 % (2-12); NEUTROPHILS # (AUTO) 3.6 X10'3 (1.8-7.7); NEUTROPHILS % (AUTO) 73.6 % (42-75); PLATELET COUNT 206 X10'3 (140-440); RED CELL DISTRIBUTION WIDTH 14.4 % (11.5-14.5); WHITE BLOOD COUNT 4.9 X10'3 (4.5-11.0)
[2019-06-07] MEDS ORDERED: CefTRIAXone/D5W-Rocephin 1gm 50 ML IV ONE (08:40)
[2019-06-07] MEDS ORDERED: CEFD300C3 PO (08:45)
[2019-06-07 08:46] LABS: ALANINE AMINOTRANSFERASE 28 U/L (12-78); ALBUMIN 3.1 G/DL (3.4-5.0); ALBUMIN/GLOBULIN RATIO 0.8 (1.1-1.5); ALKALINE PHOSPHATASE 101 IU/L (46-116); ANION GAP 8 (8-16); ASPARTATE AMINO TRANSFERASE 19 U/L (10-37); BILIRUBIN,TOTAL 0.3 MG/DL (0.1-1.0); BLOOD UREA NITROGEN 15 MG/DL (7-18); BUN/CREATININE RATIO 17.4 (6.6-38.0); CALCIUM 7.9 MG/DL (8.5-10.1); CHLORIDE 104 MMOL/L (99-107); CREATININE 0.86 MG/DL (0.40-0.90); GLUCOSE 85 MG/DL (70-104); SODIUM 140 MMOL/L (135-145); TOTAL CARBON DIOXIDE 28.4 MMOL/L (24-32); TOTAL PROTEIN 7.1 G/DL (6.4-8.2); eGFR 70 ML/MIN
[2019-06-07 09:09] VITALS: BP 114/75
== END 2019-06-07 10:01 | disposition home or self-care (01) ==
LOC: ER 06:40
DX: N20.0 Calculus of kidney (principal); N39.0 Urinary tract infection, site not specified; R11.2 Nausea with vomiting, unspecified; R10.13 Epigastric pain; R10.32 Left lower quadrant pain; I10 Essential (primary) hypertension; M19.90 Unspecified osteoarthritis, unspecified site; F17.200 Nicotine dependence, unspecified, uncomplicated; F12.90 Cannabis use, unspecified, uncomplicated; F14.90 Cocaine use, unspecified, uncomplicated; Z98.890 Other specified postprocedural states; Z88.0 Allergy status to penicillin; Z88.7 Allergy status to serum and vaccine; Z79.899 Other long term (current) drug therapy
CPT/HCPCS: 36415; 76775; 80053; 81001; 81025; 85025; 87077; 87088; 87186; 96361; 96365; 96372; 99284; C9113; J0696; J2270; J2405; J7030

== ENCOUNTER 2021-06-12 15:04 | Emergency (ER) | payer MEDICAID ==
[~2021-06-12] VITALS: Ht 162.6 cm; Wt 71.3 kg
[~2021-06-12 15:04] MED LIST changes: -CEPH250T PO; +LIDOcaine 1% w/EPI 1:100,000 30ml vial (MDV) ONE; -LISI-604 PO; +LISI-790 PO
[2021-06-12 15:48] VITALS: BP 120/81
[2021-06-12] MEDS ORDERED: SULF1TAB45 PO (15:56)
[2021-06-12] MEDS ORDERED: CEPH250T PO (15:56)
== END 2021-06-12 16:05 | disposition home or self-care (01) ==
LOC: ER 15:05
DX: L02.415 Cutaneous abscess of right lower limb (principal); I10 Essential (primary) hypertension; M19.90 Unspecified osteoarthritis, unspecified site; F12.90 Cannabis use, unspecified, uncomplicated; F11.90 Opioid use, unspecified, uncomplicated; Z87.442 Personal history of urinary calculi; Z87.440 Personal history of urinary (tract) infections; Z72.89 Other problems related to lifestyle; Z88.0 Allergy status to penicillin; Z88.7 Allergy status to serum and vaccine; Z79.1 Long term (current) use of non-steroidal anti-inflammatories (NSAID); Z79.899 Other long term (current) drug therapy
CPT/HCPCS: 10060; 99283

== ENCOUNTER 2023-01-10 19:53 | Emergency (ER) | payer MEDICAID ==
[~2023-01-10] VITALS: Ht 162.6 cm; Wt 75.0 kg
[~2023-01-10 19:53] MED LIST changes: -LIDOcaine 1% w/EPI 1:100,000 30ml vial (MDV) ONE; -LISI-790 PO; +LISI5TAB22 PO
[2023-01-10 19:56] VITALS: BP 165/106
== END 2023-01-10 21:01 | disposition left against medical advice (07) ==
LOC: ER 19:53
DX: M25.532 Pain in left wrist (principal); Z53.21 Procedure and treatment not carried out due to patient leaving prior to being seen by health care provider
CPT/HCPCS: 99281

== ENCOUNTER 2023-02-25 18:41 | Emergency (ER) | payer MEDICAID ==
[~2023-02-25] VITALS: Ht 162.6 cm; Wt 75.9 kg
[2023-02-25] MEDS ORDERED: HYDROcodone/acetaminophen 10/325mg tab PO ONE (19:20)
[2023-02-25] MEDS ORDERED: ondansetron 4mg rapidly disintigrating tab PO ONE (19:20)
[2023-02-25] MEDS ORDERED: morphine 4 MG/ML inj SYRINge IM ONE (19:20)
[2023-02-25] MEDS ORDERED: HYDR-3973 PO (19:55)
[2023-02-25] MEDS ORDERED: IBUP-1986 PO (19:55)
[2023-02-25 20:34] VITALS: BP 155/101
== END 2023-02-25 20:35 | disposition home or self-care (01) ==
LOC: ER 18:41
DX: S93.401A Sprain of unspecified ligament of right ankle, initial encounter (principal); I10 Essential (primary) hypertension; M19.90 Unspecified osteoarthritis, unspecified site; Z88.0 Allergy status to penicillin; Z88.7 Allergy status to serum and vaccine; W01.0XXA Fall on same level from slipping, tripping and stumbling without subsequent striking against object, initial encounter; Y93.89 Activity, other specified; Y92.89 Other specified places as the place of occurrence of the external cause; Y99.8 Other external cause status
CPT/HCPCS: 73610; 96372; 99283; J2270

== ENCOUNTER 2024-07-04 13:19 | Outpatient (CLI) | payer MEDICAID ==
[~2024-07-04 13:19] MED LIST changes: +IBUP-1986 PO
== END 2024-07-04 23:59 | disposition home or self-care (01) ==
LOC: VAS 13:19
PROVIDERS: ATTEND Family Medicine
DX: R23.0 Cyanosis (principal); I73.9 Peripheral vascular disease, unspecified; Z72.0 Tobacco use
CPT/HCPCS: 93922; 93925

== ENCOUNTER 2025-05-07 06:12 | Emergency (ER) | payer MEDICAID ==
[~2025-05-07] VITALS: Ht 160 cm; Wt 75.2 kg
[2025-05-07 06:15] VITALS: TEMP 97.3
--- NOTE | 2025-05-07 06:42 | Physician Documentation ---
History of Present Illness ~ Chief Complaint: Flank Pain Stated Complaint: FLANK PAIN Time Seen by MD: 06:29 Primary Medical Doctor: Antonio SEGURA Patient presents to the emergency room for evaluation of five day history of left flank pain. Patient has history of some degree of cysts in her kidney with prior history of pyelonephritis requiring stent placement. She states she does not feel any urinary tract infection symptoms when this occurs. She is taking ibuprofen for pain last time more than 24 hours ago. No fevers Medication Reconciliation Allergies: Coded Allergies: Penicillins (Unverified Allergy, Intermediate, 05/07/25) Influenza Virus Vaccines (Verified Allergy, Unknown, 05/07/25) pneumococcal vaccine (Verified Allergy, Unknown, 05/07/25) Scheduled Ciprofloxacin HCl (Ciprofloxacin HCl), 1 TAB PO Q12H Docusate Sodium (Colace), 1 CAP PO Q12H Ibuprofen (Ibuprofen), 1 TAB PO Q8H Lisinopril (Lisinopril), 1 TAB PO DAILY, (Reported) Nicotine (Nicotine Patch), 1 EACH TD DAILY Past Medical History Past Medical History: Hypertension, Kidney Stones, UTI, Arthritis, Depression Past Surgical History: orthopedic surgeries Patient History: Patient reports no known family medical history. Alcohol Use: Occasionally Drug Use: marijuana, cocaine Lives with: Other Lives In: Home Occupation: disabled Review of Systems ROS All review of systems negative except as per HPI Physical Exam Physical Exam Vital Signs: Temperature: 97.3, Source: Temporal, Heart Rate: 95, Respiratory Rate: 16, BP: 144/93, Pulse Oximetry: 99, Weight: 75.200 Oxygen Flow Rate: 0 Physical Exam General: Patient is awake, alert, oriented x4 in no acute distress Head: Normocephalic and atraumatic. Eyes: Conjunctival normal. EOMI. PERRL. ENT: Mucous membranes moist. Neck: Supple, trachea is midline. Chest: Clear to auscultation bilaterally without rales, rhonchi, or wheezes. There is no accessory muscle use or retractions. Cardiac: RRR without murmurs, gallops, or rubs. Abd: Soft, nondistended, nontender, with normoactive bowel sounds. No guarding, rebound, or rigidity. Positive left CVA tenderness Progress Results/Orders Results/Orders Orders - WILLIAM JON MD Procalcitonin (05/07/25 06:41) Ct Abdomen Pelvis (05/07/25 07:44) Completed Orders - WILLIAM JON MD Ct Abdomen Pelvis (05/07/25 07:44) Ibuprofen Tablet (Motrin Tablet) (05/07/25 06:45) Acetaminophen 325mg Tablet (Tylenol Tabl (05/07/25 06:45) Ceftriaxone Im Kit W/Lidocaine (Rocephin (05/07/25 08:20) Medications Received in ER Medications (Trade) Dose Ordered Sig/Patricia Route PRN Reason Start Time Stop Time Status Last Admin Dose Admin (Motrin tablet) 800 mg ONCE ONCE PO 05/07/25 06:45 05/07/25 06:46 DC 05/07/25 06:48 800 MG (Tylenol tablet) 650 mg ONCE ONCE PO 05/07/25 06:45 05/07/25 06:46 DC 05/07/25 06:48 650 MG Vital Signs 05/07/25 05/07/25 05/07/25 06:15 06:41 06:52 Temp 97.3 Pulse 95 90 Resp 16 16 16 B/P (MAP) 144/93 118/73 (88) Pulse Ox 99 96 O2 Flow Rate 0 0 Laboratory Tests Test 05/07/25 06:20 05/07/25 06:38 Urine Specimen Description Cln catch midstream Urine Color Yellow Urine Clarity Slightly cloudy Urine pH 6.0 Urine Specific [place] >=1.030 Urine Protein 30 H Urine Glucose (UA) Negative Urine Ketones Negative Urine Occult Blood Trace-intact Urine Nitrite Positive H Urine Bilirubin Negative Urine Urobilinogen 0.2 Urine Leukocyte Esterase Moderate H Urine RBC 0-2 Urine WBC Tntc H Urine Squamous Epithelial Cells Moderate Urine Bacteria 4+ Urine Mucus None seen Urine Culture Indicated Indicated Volume Urine Centrifuged 10 ml Urine Comment White Blood Count 9.1 Red Blood Count 4.75 Hemoglobin 14.5 Hematocrit 42.8 Mean Corpuscular Volume 90.1 Mean Corpuscular Hemoglobin 30.6 Mean Corpuscular Hemoglobin Concent 34.0 Red Cell Distribution Width 14.4 Platelet Count 324 Mean Platelet Volume 8.6 Neutrophils (%) (Auto) 61.3 Lymphocytes (%) (Auto) 28.7 Monocytes (%) (Auto) 7.7 Eosinophils (%) (Auto) 1.6 Basophils (%) (Auto) 0.7 Neutrophils # (Auto) 5.6 Lymphocytes # (Auto) 2.6 Monocytes # (Auto) 0.7 Eosinophils # (Auto) 0.1 Basophils # (Auto) 0.1 CBC Comment Sodium Level 140 Potassium Level 4.0 Chloride Level 104 Carbon Dioxide Level 26.4 Anion Gap 10 Blood Urea Nitrogen 17 Creatinine 1.15 H Estimated GFR/1.73 m2 49 BUN/Creatinine Ratio 14.8 Glucose Level 105 H Calcium Level 8.9 Total Bilirubin 0.2 Aspartate Amino Transf (AST/SGOT) 11 Alanine Aminotransferase (ALT/SGPT) 24 Alkaline Phosphatase 112 Total Protein 7.4 Albumin 3.8 Globulin 3.6 Albumin/Globulin Ratio 1.1 Lipase 110 H Chemistry Comments Medical Decision Making Findings Patient presents to the emergency room for evaluation of flank pain. Differentials include but are not limited to pyelonephritis musculoskeletal pain aortic pathology, referred pain therefore emergent labs and imaging indicated. Labs are reassuring. Patient does have a urinary tract infection and along with flank pain do believe she is suffering from pyelonephritis and we will treat her accordingly. ER precautions discussed. CT scan reassuring Departure Disposition: HOME / SELF CARE / HOMELESS Impression: Primary Impression: Acute pyelonephritis Condition: Stable Discharge Instructions: Pyelonephritis, Adult Referrals: NO PRIMARY CARE PROVIDER (PCP) Prescriptions Ciprofloxacin HCl (Ciprofloxacin HCl) 500 Mg Tab 1 TAB PO Q12H for 10 Days, #20 TAB Prov: WILLIAM JON MD 05/07/25 Education Educated: Patient Educated regarding: diagnosis, treatment, need for follow up Signature Scribe Signature: No scribe Attestation: The note accurately reflects work and decisions made by me.William Jon MD 05/07/25 08:23 WILLIAM JON MD May 07, 2025 06:42
[2025-05-07] MEDS: ibuprofen tablet 400 MG TABLET PO ONE (06:48)
[2025-05-07 07:14] LABS: MEAN PLATELET VOLUME 8.6 FL (7.4-10.4); RED CELL DISTRIBUTION WIDTH 14.4 % (11.5-14.5)
[2025-05-07 07:21] LABS: LEUKOCYTE ESTERASE ,URINE MODERATE (Neg); NITRITES, URINE POSITIVE (Neg); OCCULT BLOOD,URINE TRACE-INTACT (Neg)
[2025-05-07 07:28] LABS: UA COLLECTION TYPE CLN CATCH MIDSTREAM
[2025-05-07 07:30] LABS: MUCUS STRANDS NONE SEEN /LPF (Neg); SQUAMOUS EPITHELIAL CELL,UR MODERATE /LPF (FEW)
[2025-05-07 07:54] LABS: CREATININE 1.15 MG/DL (0.40-0.90); TOTAL CARBON DIOXIDE 26.4 MMOL/L (24-32); eCRCL 46 ML/MIN; eGFR 49 ML/MIN
--- NOTE | 2025-05-07 08:16 | RADIOLOGY REPORT ---
EXAM: CT Abdomen and Pelvis Without Intravenous Contrast CLINICAL INDICATION: Pain TECHNIQUE: Axial computed tomography images of the abdomen and pelvis without intravenous contrast. This CT exam was performed using one or more of the following dose reduction techniques: automated exposure control, adjustment of the mA and/or kV according to patient size, and/or use of iterative r econstruction technique. COMPARISON: No relevant prior studies available. FINDINGS: LUNG BASES: Unremarkable. No mass. No consolidation. MEDIASTINUM: Small esophageal hiatal hernia. ABDOMEN: LIVER: Fatty infiltration of the liver. GALLBLADDER AND BILE DUCTS: Unremarkable. No calcified stones. No ductal dilation. PANCREAS: Unremarkable. No ductal dilation. SPLEEN: Unremarkable. No splenomegaly. ADRENALS: Unremarkable. No mass. 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 STOMACH AND BOWEL: Fecal retention in the colon consistent with constipation. No obstruction. No m ucosal thickening. PELVIS: APPENDIX: No findings to suggest acute appendicitis. BLADDER: Unremarkable. No stones. REPRODUCTIVE: Unremarkable as visualized. ABDOMEN and PELVIS: INTRAPERITONEAL SPACE: Unremarkable. No free air. No significant fluid collection. BONES/JOINTS: No acute fracture. No dislocation. SOFT TISSUES: Umbilical hernia containing fat. VASCULATURE: Unremarkable. No abdominal aortic aneurysm. LYMPH NODES: Unremarkable. No enlarged lymph nodes. IMPRESSION: 1. Small esophageal hiatal hernia. 2. 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 3. Umbilical hernia containing fat. 4. Fecal retention in the colon consistent with constipation.
[2025-05-07] MEDS ORDERED: CIPR-458 PO (08:20)
[2025-05-07] MEDS: CefTRIAXone 1000mg IM Kit (w/lidocaine diluent) IM ONE (09:49)
[2025-05-07 09:57] VITALS: BP 104/70; PULSE 75; RESP 16; O2SAT 96
== END 2025-05-07 10:00 | disposition home or self-care (01) ==
LOC: ER 06:13
DX: N10 Acute pyelonephritis (principal); M19.90 Unspecified osteoarthritis, unspecified site; F12.90 Cannabis use, unspecified, uncomplicated; F14.90 Cocaine use, unspecified, uncomplicated; I10 Essential (primary) hypertension; F32.A Depression, unspecified; Z88.0 Allergy status to penicillin; Z88.7 Allergy status to serum and vaccine; Z79.899 Other long term (current) drug therapy; Z87.442 Personal history of urinary calculi; Z72.89 Other problems related to lifestyle
CPT/HCPCS: 36415; 74176; 80053; 81001; 83690; 84145; 85025; 87077; 87088; 87186; 96372; 99285; J0696